=== PATIENT | male | born 1940 | race Caucasian/White ===

== ENCOUNTER 2018-08-19 13:02 | Day surgery (SDC) | payer MEDICARE, OTHER ==
[~2018-08-19] VITALS: Ht 175.3 cm; Wt 82.1 kg
[~2018-08-19 13:02] MED LIST: ASPIRIN 32325 MG/TAB PO; ASPIRIN 81M81 MG/TA2 PO; BENICAR 20MG TA20 MG PO; BENICAR5 MG PO; CARDI-OMEGA1000 MG PO; CLARITIN 1010 MG/TAB PO; COLACE50 MG PO; CRESTOR 10MG10 MG PO; CRESTOR20 MG PO; CRESTOR5 MG PO; DUO-KAPS1 CAP PO; FISH OIL500 MG PO; MULTIPLE VITAMI1 CAP PO; PLAVIX 75MG TAB75 MG PO; SLO NIACIN750 MG PO; TOPROL XL 50MG50 MG PO; TYLENOL W/COD1 UDTAB PO; VITAMIN D31000 IU PO
[2018-08-19] MEDS ORDERED: ELIQUIS 5MG PO (13:26)
[2018-08-19] MEDS ORDERED: FLOMAX 0.40.4 MG/CAP PO (13:28)
[2018-08-19] MEDS ORDERED: DIGITEK0.125 MG PO (13:28)
[2018-08-19] MEDS ORDERED: LASIX 40MG TABL40 MG PO (13:28)
[2018-08-19] MEDS ORDERED: LYRICA 150MG C150 MG PO (13:29)
[2018-08-19] MEDS ORDERED: LYRICA 100MG C100 M1 PO (13:29)
[2018-08-19] MEDS ORDERED: OXYCONTIN60 MG PO (13:30)
[2018-08-19] MEDS ORDERED: DAZIDOX20 MG PO (13:30)
[2018-08-19] MEDS ORDERED: ALDACTONE 25MG25 M1 PO (13:30)
[2018-08-19] MEDS ORDERED: TYLENOL PM EXTR1 TA1 PO (13:31)
[2018-08-19] MEDS ORDERED: SLO-NIACIN750 MG PO (13:31)
[2018-08-19] MEDS ORDERED: BROVANA15 MCG/2 M IH (13:32)
[2018-08-19] MEDS ORDERED: MIRALAX PA17 GM/Dose PO (13:32)
[2018-08-19] MEDS ORDERED: VITAMIN D31000 I1 PO (13:32)
[2018-08-19] MEDS ORDERED: PULMICORT0.5 MG/2 M IH (13:33)
[2018-08-19] MEDS ORDERED: INCRUSE EL62.5 MCG/A IH (13:34)
[2018-08-19] MEDS ORDERED: SINGULAIR 110 MG/TAB PO (13:34)
[2018-08-19 13:54] LABS: HEMATOCRIT 41.6 % (42.0-52.0); HEMOGLOBIN 12.9 g/dl (13.5-18.0); MEAN CELL VOLUME 87 fl (80.0-100.0); MEAN CORPUSCULAR HEMOGLOBIN 27 pg (27.0-31.0); MEAN CORPUSCULAR HGB CONC 31 g/dl (33.0-37.0); MEAN PLATELET VOLUME 12.4 fl (7.4-10.4); PLATELET COUNT 136 K/mm3 (130-400); RED BLOOD COUNT 4.77 M/mm3 (4.20-5.60); REDCELL DISTRIBUTION WIDTH-CV 15.7 % (11.5-14.5)
[2018-08-19 14:00] VITALS: BP 126/74; PULSE 102; TEMP 97.8
[2018-08-19 14:02] LABS: INR 1.5 (0.8-3.0); PROTHROMBIN TIME 16.7 SECONDS (9.7-12.8)
[2018-08-19 14:07] LABS: CALCIUM 10.1 mg/dL (8.4-10.2); CREATININE, serum 1.25 (0.66-1.25); POTASSIUM 4.2 mmol/L (3.4-5.0)
[2018-08-19 14:15] VITALS: BP 100/58; PULSE 63
[2018-08-19 14:30] VITALS: BP 96/78; PULSE 85
[2018-08-19 14:45] VITALS: BP 106/76; PULSE 58
[2018-08-19] MEDS ORDERED: TOPROL XL 50MG50 MG PO (14:53)
[2018-08-19] MEDS ORDERED: PACERONE400 MG PO (14:54)
== END 2018-08-19 15:18 | disposition home or self-care (01) ==
LOC: COL.CAR 13:02
PROVIDERS: Internal Medicine Cardiovascular Disease
DX: I48.0 Paroxysmal atrial fibrillation (principal); I11.0 Hypertensive heart disease with heart failure; I50.9 Heart failure, unspecified; J44.9 Chronic obstructive pulmonary disease, unspecified; G89.29 Other chronic pain; M19.90 Unspecified osteoarthritis, unspecified site; Z88.0 Allergy status to penicillin; Z88.2 Allergy status to sulfonamides; I25.10 Atherosclerotic heart disease of native coronary artery without angina pectoris; E78.5 Hyperlipidemia, unspecified; Z87.891 Personal history of nicotine dependence; Z79.01 Long term (current) use of anticoagulants
CPT/HCPCS: J2704; J7030